=== PATIENT | female | born 1995 | race Caucasian/White ===

== ENCOUNTER 2025-04-25 20:13 | Emergency (ER) | payer OTHER ==
[~2025-04-25] VITALS: Ht 165.1 cm; Wt 68.0 kg
[2025-04-25 21:32] VITALS: BP 100/65; TEMP 98; O2SAT 99
== END 2025-04-25 21:33 | disposition home or self-care (01) ==
LOC: ER 20:20
DX: S30.0XXA Contusion of lower back and pelvis, initial encounter (principal); Z60.2 Problems related to living alone; W10.9XXA Fall (on) (from) unspecified stairs and steps, initial encounter; Y93.89 Activity, other specified; Y92.89 Other specified places as the place of occurrence of the external cause; Y99.8 Other external cause status